=== PATIENT | female | born 1945 | race Caucasian/White ===

== ENCOUNTER 2019-09-28 18:57 | Inpatient (IN) | payer MEDICARE, MEDICAID ==
[~2019-09-28] VITALS: Ht 149.9 cm; Wt 41.9 kg
[2019-09-28] MEDS ORDERED: normal saline 1000ML IV soln IVB ONE (19:35)
[2019-09-28] MEDS ORDERED: ipratropium/albuterol 3ml nebule NEB ONE (19:35)
[2019-09-28 19:41] LABS: BASOPHILS # (AUTO) 0.1 X10'3 (0-0.2); BASOPHILS % (AUTO) 0.9 % (0-1); EOSINOPHILS % (AUTO) 0.1 % (0-6); HEMATOCRIT 41.7 % (35.0-45.0); HEMOGLOBIN 14.5 g/dl (12.0-16.0); LYMPHOCYTES # (AUTO) 0.9 X10'3 (1.1-4.8); LYMPHOCYTES % (AUTO) 7.5 % (21-51); MEAN CORPUSCULAR HEMOGLOBIN 33.7 PG (27.0-31.0); MEAN CORPUSCULAR HGB CONC 34.7 g/dL (33.0-36.5); MEAN CORPUSCULAR VOLUME 97.3 FL (78-98); MEAN PLATELET VOLUME 8.7 FL (7.4-10.4); MONOCYTES # (AUTO) 0.8 X10'3 (0-0.9); MONOCYTES % (AUTO) 6.9 % (2-12); NEUTROPHILS % (AUTO) 84.6 % (42-75); PLATELET COUNT 315 X10'3 (140-440); RED BLOOD COUNT 4.29 X10'6 (4.20-5.60); RED CELL DISTRIBUTION WIDTH 12.5 % (11.5-14.5); WHITE BLOOD COUNT 11.9 X10'3 (4.5-11.0)
[2019-09-28 19:58] LABS: ANION GAP 13 (8-16); BILIRUBIN,TOTAL 0.7 MG/DL (0.1-1.0); BLOOD UREA NITROGEN 8 MG/DL (7-18); BUN/CREATININE RATIO 13.1 (6.6-38.0); CALCIUM 8.8 MG/DL (8.5-10.1); CHLORIDE 102 MMOL/L (99-107); CREATININE 0.61 MG/DL (0.40-0.90); GLUCOSE 123 MG/DL (70-104); POTASSIUM 3.6 MMOL/L (3.5-5.1); SODIUM 138 MMOL/L (135-145); TOTAL CARBON DIOXIDE 23.3 MMOL/L (24-32); TOTAL PROTEIN 7.5 G/DL (6.4-8.2); eGFR > 90 ML/MIN
[2019-09-28 19:59] LABS: ALANINE AMINOTRANSFERASE 20 U/L (12-78); ALBUMIN 3.2 G/DL (3.4-5.0); ALBUMIN/GLOBULIN RATIO 0.7 (1.1-1.5); ALKALINE PHOSPHATASE 84 IU/L (46-116); ASPARTATE AMINO TRANSFERASE 15 U/L (10-37)
[2019-09-28] MEDS ORDERED: AMLO-93 PO (19:59)
[2019-09-28] MEDS ORDERED: morphine 4 MG/ML inj SYRINge IV ONE (20:10)
--- NOTE | 2019-09-28 20:25 | NUR ---
pt given 2mg morphine, 1mg at a time very slowly, per pt's concern with previous headache caused by morphine at a diffenent incident. pt tolerated well.
[2019-09-28 20:33] LABS: PARTIAL THROMBOPLASTIN TIME 26 SECONDS (22-32)
[2019-09-28] MEDS ORDERED: normal saline 1000ml 1,000 ML IV ONE (21:00)
[2019-09-28] MEDS ORDERED: CefTRIAXone/D5W-Rocephin 1gm 50 ML IV ONE (21:00)
--- NOTE | 2019-09-28 21:34 | NUR ---
call from lab stating influenza swab will be sent to [facility] dt equipment malfunctioning. will update on progress. PA notified.
[2019-09-28] MEDS ORDERED: ondansetron/PF 4mg/2ml inj IV PRN (21:40)
[2019-09-28] MEDS ORDERED: magnesium 2GM in 50ml NS 50 ML IV PRN (21:40)
[2019-09-28] MEDS ORDERED: magnesium 4gm in 100ml NS 100 ML IV PRN (21:40)
[2019-09-28] MEDS ORDERED: potassium CL 10mEq/100ml bag 100 ML IV PRN ×2 (21:40)
[2019-09-28] MEDS ORDERED: ipratropium/albuterol 3ml nebule NEB PRN (21:40)
[2019-09-28] MEDS ORDERED: mag hydrox/Alum hydrox/simeth 30ml oral suspension PO PRN (21:40)
[2019-09-28] MEDS ORDERED: potassium Cl 20 mEq SR tablet PO PRN ×2 (21:40)
[2019-09-28] MEDS ORDERED: docusate sod 100mg capsule PO PRN (21:40)
[2019-09-28] MEDS ORDERED: acetaminophen 325mg tablet PO PRN (21:40)
[2019-09-28] MEDS ORDERED: metoprolol tartrate 50mg tablet PO ONE (21:45)
[2019-09-28 22:02] LABS: D-DIMER 1.02 MG/L FEU (0-0.50)
[2019-09-28] MEDS: enoxaparin 40mg/0.4ml syringe SQ SCH (22:25)
--- NOTE | 2019-09-28 22:52 | NUR ---
Patient in room [facility]. I have received report from RACHELL DONG RN and had the opportunity to ask questions and will assume patient care upon arrival to the room.. Addendum: 09/28/19 at 2254 by Lena Zee RN Amended: Links added.
--- NOTE | 2019-09-28 23:14 | NUR ---
ARRIVED TO THE FLOORFROM THE ER AND SETTLED INTO THE BED. COUGHING.
[2019-09-29 00:01] VITALS: BP 132/79
--- NOTE | 2019-09-29 01:05 | NUR ---
2 PERSON SKIN CHECK DONE SKIN CLEAR. AWOKE WITH ABX BEING HUNG.
[2019-09-29] MEDS: piperacillin/tazo 3.375gm/50ml 50 ML IV SCH ×2 (01:08→10:13)
--- NOTE | 2019-09-29 03:00 | NUR ---
Dr Frausto called received order for tesslon pearls and to start as a give tid. start now for cough.
[2019-09-29] MEDS: benzonatate 100mg capsule PO SCH ×3 (03:03→18:01)
--- NOTE | 2019-09-29 03:39 | NUR ---
iv saline locked resting eyes closed without s&s of distress.
--- NOTE | 2019-09-29 05:26 | NUR ---
pt was resting awoke coughing non-productively.denies need for pain medication.
[2019-09-29 06:12] LABS: BASOPHILS % (AUTO) 0.2 % (0-1); EOSINOPHILS % (AUTO) 0.2 % (0-6); HEMATOCRIT 35.7 % (35.0-45.0); HEMOGLOBIN 12.2 g/dl (12.0-16.0); LYMPHOCYTES # (AUTO) 0.9 X10'3 (1.1-4.8); LYMPHOCYTES % (AUTO) 6.6 % (21-51); MEAN CORPUSCULAR HEMOGLOBIN 33.2 PG (27.0-31.0); MEAN CORPUSCULAR HGB CONC 34.1 g/dL (33.0-36.5); MEAN CORPUSCULAR VOLUME 97.6 FL (78-98); MEAN PLATELET VOLUME 9.4 FL (7.4-10.4); NEUTROPHILS # (AUTO) 11.8 X10'3 (1.8-7.7); PLATELET COUNT 275 X10'3 (140-440); RED BLOOD COUNT 3.66 X10'6 (4.20-5.60); RED CELL DISTRIBUTION WIDTH 12.5 % (11.5-14.5); WHITE BLOOD COUNT 13.8 X10'3 (4.5-11.0)
--- NOTE | 2019-09-29 06:33 | NUR ---
Problems reprioritized. Patient report given, questions answered & plan of care reviewed with Brittany Angel's.
[2019-09-29 06:36] LABS: ALANINE AMINOTRANSFERASE 19 U/L (12-78); ALBUMIN 2.5 G/DL (3.4-5.0); ALBUMIN/GLOBULIN RATIO 0.7 (1.1-1.5); ALKALINE PHOSPHATASE 71 IU/L (46-116); ANION GAP 11 (8-16); ASPARTATE AMINO TRANSFERASE 19 U/L (10-37); BILIRUBIN,TOTAL 0.5 MG/DL (0.1-1.0); BLOOD UREA NITROGEN 6 MG/DL (7-18); CALCIUM 7.6 MG/DL (8.5-10.1); CHLORIDE 105 MMOL/L (99-107); GLUCOSE 112 MG/DL (70-104); POTASSIUM 3.6 MMOL/L (3.5-5.1); SODIUM 140 MMOL/L (135-145); TOTAL CARBON DIOXIDE 24.4 MMOL/L (24-32); TOTAL PROTEIN 6.2 G/DL (6.4-8.2); eGFR > 90 ML/MIN
--- NOTE | 2019-09-29 07:34 | NUR ---
Patient in room [facility]. I have received report from Lena MISHRA and had the opportunity to ask questions and assume patient care.
[2019-09-29 07:37] VITALS: BP 123/70
[2019-09-29] MEDS ORDERED: metoprolol tartrate 50mg tablet PO SCH (08:00)
[2019-09-29] MEDS ORDERED: budesonide 0.5mg/2ml UD nebule IH SCH ×2 (08:00→09:00)
[2019-09-29] MEDS: enoxaparin 40mg/0.4ml syringe SQ SCH ×3 (08:00→10:26)
[2019-09-29] MEDS ORDERED: nicotine 14mg patch - 24hr TD SCH (08:00)
[2019-09-29] MEDS: K and/or MAG REPLACEMENT MC SCH ×2 (08:00→19:49)
[2019-09-29] MEDS ORDERED: enoxaparin 40mg/0.4ml syringe SQ SCH (08:00)
[2019-09-29] MEDS ORDERED: FLU VACC QS2019-20 36MOS UP/PF 60 MCG/0.5 ML SYRINGE IMVAC ONE (10:00)
[2019-09-29 11:30] VITALS: BP 127/58
[2019-09-29] MEDS ORDERED: methylPREDNISolone sod succ 125mg/2ml vial IV ONE (13:30)
[2019-09-29] MEDS: methylPREDNISolone sod succ/PF 40mg inj. IV SCH ×2 (14:00→19:46)
[2019-09-29] MEDS ORDERED: ipratropium/albuterol 3ml nebule NEB SCH (15:00)
[2019-09-29] MEDS: amLODIPine 5mg tablet PO SCH (15:11)
[2019-09-29] MEDS: levoFLOXACIN-Levaquin 750MG/D5 150 ML IV SCH (15:11)
--- NOTE | 2019-09-29 16:10 | NUR ---
Malnutrition consult: Pt seen at bedside reports UBW 104 lbs with low PO intake secondary to feeling sick x 1 week causing wt loss resulting in current wt of 92 lbs. Pt reports low PO intake during that time however was able to consume liquids. If pt truly lost this weight, this would be severe wt loss of 11% in one week, however this amount of wt loss seems unlikely to occur in such a short time frame given patient's small stature. Pt currently 97% IBW. No documentation of PO intake since admit however pt reports improving appetite with good PO intake of meals. Pt reports she consumed 75-100% of breakfast and lunch today meeting nutrient needs. Pt with no significant decrease in muscle strength, edema, or visible fat/muscle wasting. Pt currently does not meet criteria for malnutrition. Pt states she mostly follows a vegetarian diet that includes eggs but excludes all dairy, d/w dietary. Will continue to follow. Addendum: 09/29/19 at [address] Amended: Links added.
--- NOTE | 2019-09-29 17:30 | NUR ---
Pt complained of burning pain to anterior upper chest after Levoquin infusion. Pain level 3/10. Denies any other symptoms. VS: bp:120/67, Hr: 107, O2sat: 91% RA. EKG done. CCU hand lacer Debbie called to review EKG; recommended hospitalist to review and sign. Dr Bruner notified and reviewed EKG result. Orders received. Will continue to monitor.
[2019-09-29] MEDS ORDERED: ipratropium/albuterol 3ml nebule NEB PRN (17:45)
[2019-09-29 18:00] VITALS: BP 120/67
--- NOTE | 2019-09-29 18:00 | NUR ---
Pt states chest burning pain no longer present. Will continue to monitor.
[2019-09-29] MEDS: pantoprazole 40 MG vial IV SCH (18:02)
[2019-09-29] MEDS: guaiFENesin/DM 10ml UD oral syrup PO PRN (18:51)
--- NOTE | 2019-09-29 19:04 | NUR ---
Problems reprioritized. Patient report given, questions answered & plan of care reviewed with Prudence RN.
--- NOTE | 2019-09-29 19:32 | NUR ---
Patient in room [facility]. I have received report from Michelle MISHRA and Dilia MISHRA and had the opportunity to ask questions and assume patient care.
[2019-09-29] MEDS: lactobacillus rhamnosus 10,000 MMU CELLS/CAPSULE PO SCH (19:46)
[2019-09-29] MEDS: ipratropium/albuterol 3ml nebule NEB SCH (20:51)
[2019-09-30 00:13] VITALS: BP 113/70
[2019-09-30] MEDS: methylPREDNISolone sod succ/PF 40mg inj. IV SCH ×3 (01:37→14:00)
[2019-09-30] MEDS: benzonatate 100mg capsule PO SCH ×2 (01:37→08:18)
[2019-09-30] MEDS: ipratropium/albuterol 3ml nebule NEB SCH ×3 (02:32→14:39)
[2019-09-30] MEDS: guaiFENesin/DM 10ml UD oral syrup PO PRN (02:54)
[2019-09-30 05:46] LABS: BASOPHILS % (AUTO) 0.4 % (0-1); EOSINOPHILS % (AUTO) 0 % (0-6); HEMATOCRIT 40.4 % (35.0-45.0); HEMOGLOBIN 13.9 g/dl (12.0-16.0); LYMPHOCYTES # (AUTO) 0.3 X10'3 (1.1-4.8); LYMPHOCYTES % (AUTO) 5.2 % (21-51); MEAN CORPUSCULAR HEMOGLOBIN 33.4 PG (27.0-31.0); MEAN CORPUSCULAR HGB CONC 34.5 g/dL (33.0-36.5); MEAN CORPUSCULAR VOLUME 96.9 FL (78-98); MEAN PLATELET VOLUME 9.3 FL (7.4-10.4); MONOCYTES # (AUTO) 0.1 X10'3 (0-0.9); MONOCYTES % (AUTO) 1.7 % (2-12); NEUTROPHILS # (AUTO) 5.4 X10'3 (1.8-7.7); NEUTROPHILS % (AUTO) 92.7 % (42-75); PLATELET COUNT 322 X10'3 (140-440); RED BLOOD COUNT 4.17 X10'6 (4.20-5.60); RED CELL DISTRIBUTION WIDTH 12.4 % (11.5-14.5); WHITE BLOOD COUNT 5.9 X10'3 (4.5-11.0)
--- NOTE | 2019-09-30 06:22 | NUR ---
Problems reprioritized. Patient report given, questions answered & plan of care reviewed with Dimitris RN.
--- NOTE | 2019-09-30 06:46 | NUR ---
Patient in room [facility]. I have received report from SEBASTIAN MISHRA and had the opportunity to ask questions and assume patient care.
[2019-09-30 06:52] LABS: ALANINE AMINOTRANSFERASE 23 U/L (12-78); ALBUMIN 2.3 G/DL (3.4-5.0); ALBUMIN/GLOBULIN RATIO 0.6 (1.1-1.5); ALKALINE PHOSPHATASE 70 IU/L (46-116); ANION GAP 12 (8-16); ASPARTATE AMINO TRANSFERASE 17 U/L (10-37); BILIRUBIN,TOTAL 0.3 MG/DL (0.1-1.0); BLOOD UREA NITROGEN 10 MG/DL (7-18); BUN/CREATININE RATIO 21.7 (6.6-38.0); CALCIUM 8.4 MG/DL (8.5-10.1); CHLORIDE 109 MMOL/L (99-107); CREATININE 0.46 MG/DL (0.40-0.90); GLUCOSE 165 MG/DL (70-104); MAGNESIUM 2.3 MG/DL (1.5-2.4); POTASSIUM 3.5 MMOL/L (3.5-5.1); SODIUM 145 MMOL/L (135-145); TOTAL CARBON DIOXIDE 24.2 MMOL/L (24-32); TOTAL PROTEIN 6.4 G/DL (6.4-8.2); TROPONIN I < 0.04 NG/ML (0.0-0.05); eGFR > 90 ML/MIN
[2019-09-30 07:32] VITALS: BP 117/57
[2019-09-30] MEDS: K and/or MAG REPLACEMENT MC SCH (08:00)
[2019-09-30] MEDS ORDERED: enoxaparin 40mg/0.4ml syringe SQ SCH (08:00)
[2019-09-30] MEDS: levoFLOXACIN-Levaquin 750MG/D5 150 ML IV SCH (08:12)
[2019-09-30] MEDS: pantoprazole 40 MG vial IV SCH (08:14)
[2019-09-30] MEDS: lactobacillus rhamnosus 10,000 MMU CELLS/CAPSULE PO SCH (08:18)
[2019-09-30] MEDS: amLODIPine 5mg tablet PO SCH (08:18)
[2019-09-30 11:32] VITALS: BP 106/53
[2019-09-30] MEDS ORDERED: LEVO750T46 PO (13:10)
[2019-09-30] MEDS ORDERED: LACT1CAP26 PO (13:10)
[2019-09-30] MEDS ORDERED: PANT40TA4 PO (13:10)
[2019-09-30] MEDS ORDERED: GUAI600T45 PO (13:10)
[2019-09-30] MEDS ORDERED: PRED10TA23 PO (13:10)
[2019-09-30] MEDS ORDERED: METO-395 PO (13:11)
--- NOTE | 2019-09-30 16:00 | NUR ---
Patient discharged into the care of her family at the time of discharge. patients was at bedside during discharge. Patient was educated on new medications at this time. Patient is scheduled for a follow up with her primary physician in the next three days. Patient was educated on the taper down medications regime for prednisone. Patient stated they left with all their belongings. Patient was wheeled to lobby via wheel chair and taken home in private vehicle
[2019-09-30] MEDS ORDERED: ALBU8.5H8 IH (22:42)
[2019-10-01] MEDS ORDERED: pantoprazole 40mg Tablet.DR PO SCH (07:30)
[2019-10-01] MEDS ORDERED: levoFLOXACIN 750MG TABLET PO SCH (11:00)
--- NOTE | 2019-10-04 09:54 | NUR ---
Case Management DC follow up: LM/VM asking to rtn call if questions/concerns, post DC follow up
== END 2019-09-30 15:54 | disposition home or self-care (01) | DRG 190 ==
LOC: ER 18:58 → ED HOLD 22:16 → SUR 3N 22:49
PROVIDERS: ADMIT Family Medicine; ATTEND Family Medicine
PROC: CB121ZZ Planar Nuclear Medicine Imaging of Lungs and Bronchi using Technetium 99m (Tc-99m) (ICD-10-PCS; principal; 2019-09-29)
DX: J44.0 Chronic obstructive pulmonary disease with (acute) lower respiratory infection (principal); J18.9 Pneumonia, unspecified organism; J44.1 Chronic obstructive pulmonary disease with (acute) exacerbation; F41.9 Anxiety disorder, unspecified; R00.0 Tachycardia, unspecified; R06.03 Acute respiratory distress; I10 Essential (primary) hypertension; Z82.49 Family history of ischemic heart disease and other diseases of the circulatory system; Z87.891 Personal history of nicotine dependence; Z90.710 Acquired absence of both cervix and uterus; Z91.041 Radiographic dye allergy status; Z28.21 Immunization not carried out because of patient refusal; Z79.899 Other long term (current) drug therapy
CPT/HCPCS: 36415; 71046; 78582; 80053; 83605; 83735; 84443; 84484; 85025; 85379; 85610; 85730; 87040; 87070; 87081; 93005; 93306; 94640; 94667; 94760; 99285; A9539; A9540; C9113; G0378; J0696; J1650; J1956; J2270; J2543; J2920; J2930; J7030; Q2037

== ENCOUNTER 2021-05-04 18:52 | Emergency (ER) | payer MEDICARE, MEDICAID ==
[~2021-05-04] VITALS: Ht 149.9 cm; Wt 47.1 kg
[~2021-05-04 18:52] MED LIST: ALBU8.5H17 IH; GUAI600T45 PO; LACT1CAP26 PO; LEVO750T46 PO; METO-395 PO; PANT40TA54 PO
[2021-05-04 19:38] VITALS: BP 143/88
== END 2021-05-04 21:44 | disposition left against medical advice (07) ==
LOC: MERGE 18:53 → ER 18:53
DX: S00.12XA Contusion of left eyelid and periocular area, initial encounter (principal); M25.531 Pain in right wrist; Z53.21 Procedure and treatment not carried out due to patient leaving prior to being seen by health care provider; W50.0XXA Accidental hit or strike by another person, initial encounter; Y93.F9 Activity, other caregiving; Y92.018 Other place in single-family (private) house as the place of occurrence of the external cause
CPT/HCPCS: 70450; 72125; 73110; 99285

== ENCOUNTER 2021-05-06 09:22 | Emergency (ER) | payer MEDICARE, OTHER ==
[~2021-05-06] VITALS: Ht 149.9 cm; Wt 46.7 kg
[2021-05-06 09:25] VITALS: BP 160/75
[2021-05-06] MEDS ORDERED: ACET-1025 PO (09:51)
--- NOTE | 2021-05-06 09:55 | NUR ---
MARI PICHARDO (FRIEND) [phone] WILL BE PICKING PATIENT UP UPON DISCHARGE
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
== END 2021-05-06 10:21 | disposition home or self-care (01) ==
LOC: ER 09:23
DX: S52.571A Other intraarticular fracture of lower end of right radius, initial encounter for closed fracture (principal); S52.614A Nondisplaced fracture of right ulna styloid process, initial encounter for closed fracture; M25.531 Pain in right wrist; R51.9 Headache, unspecified; I10 Essential (primary) hypertension; Z88.5 Allergy status to narcotic agent; Z88.8 Allergy status to other drugs, medicaments and biological substances; Z79.2 Long term (current) use of antibiotics; Z79.899 Other long term (current) drug therapy; Y08.89XA Assault by other specified means, initial encounter; Y93.89 Activity, other specified; Y92.89 Other specified places as the place of occurrence of the external cause; Y99.8 Other external cause status
CPT/HCPCS: 29125; 99283

== ENCOUNTER 2023-12-28 09:41 | Outpatient (CLI) | payer MEDICARE, OTHER ==
[~2023-12-28 09:41] MED LIST changes: -LEVO750T46 PO; +LEVO750T68 PO
== END 2023-12-28 23:59 | disposition home or self-care (01) ==
LOC: RAD 09:41
PROVIDERS: ATTEND Family Medicine
DX: M21.6X2 Other acquired deformities of left foot (principal); M79.605 Pain in left leg
CPT/HCPCS: 73590; 73610